=== PATIENT | male | born 1935 | race Caucasian/White ===

== ENCOUNTER → 2016-07-09 | Outpatient (CLI) | payer MEDICARE, OTHER ==
[~2016-07-09] MED LIST: AML5T PO; ASPI-231 PO; BENA20TA4 PO; FENO160T8 PO; GLUC750T29 PO; LEVO25TA49 PO; MULT-775 OR; POT20T PO; READI-CAT 2 (BARIUM SULF)(VANILLA SMOOTHIE) 450ML ONE; TAMS0.4C36 PO
== END | disposition home or self-care (01) ==
LOC: Rad HDHVI 11:01
PROVIDERS: ATTEND Internal Medicine Cardiovascular Disease
DX: K57.30 Diverticulosis of large intestine without perforation or abscess without bleeding (principal); N32.3 Diverticulum of bladder; Z90.49 Acquired absence of other specified parts of digestive tract; M12.88 Other specific arthropathies, not elsewhere classified, other specified site; M43.16 Spondylolisthesis, lumbar region; M47.897 Other spondylosis, lumbosacral region
CPT/HCPCS: 74176

== ENCOUNTER → 2017-04-29 | Outpatient (CLI) | payer MEDICARE, OTHER ==
[~2017-04-29] MED LIST changes: +BENA20TA14 PO; -BENA20TA4 PO; -READI-CAT 2 (BARIUM SULF)(VANILLA SMOOTHIE) 450ML ONE
[2017-04-29 10:00] VITALS: BP 127/79
[2017-04-29 10:32] VITALS: BP 115/71
[2017-04-29 12:58] LABS: Basophils # (auto) 0.1 uL; Basophils % (auto) 1.2 % (0.0-2.0); Eosinophils # (auto) 0.2 uL; Hematocrit 44.9 % (41.0-53.0); Hemoglobin 15.2 g/dL (13.5-17.5); Lymphocytes # (auto) 1.2 uL; Lymphocytes % (auto) 23.6 % (10.0-50.0); Mean Corpuscular Hemoglobin 29.6 pg (28.0-32.0); Mean Corpuscular Hgb Conc. 33.8 g/dL (32.0-36.0); Mean Corpuscular Volume 87.5 fL (80.0-100.0); Mean Platelet Volume 9.5 fL (6.9-10.8); Monocytes # (auto) 0.5 uL; Monocytes % (auto) 10.3 % (0.0-12.0); Neutrophils # (auto) 3.2 uL; Neutrophils % (auto) 60.9 % (37.0-80.0); Nucleated Red Blood Cells % 0.2 %; Platelet Count (auto) 211 10^3/uL (140-450); Red Cell Distribution Width 14.1 % (11.8-14.3); White Blood Cell 5.2 10^3/uL (4.4-10.8)
[2017-04-29 13:08] LABS: BUN/Creatinine Ratio 16.1; Calcium 9.9 mg/dL (8.5-10.1); Potassium 3.9 mmol/L (3.5-5.1)
== END | disposition home or self-care (01) ==
LOC: Rad HDHVI 09:48
PROVIDERS: ATTEND Internal Medicine Cardiovascular Disease
DX: Z01.818 Encounter for other preprocedural examination (principal); I70.0 Atherosclerosis of aorta; I10 Essential (primary) hypertension; D64.9 Anemia, unspecified; R79.1 Abnormal coagulation profile; E78.00 Pure hypercholesterolemia, unspecified; M77.8 Other enthesopathies, not elsewhere classified
CPT/HCPCS: 36415; 71020; 80048; 85025; 93005; G0463

== ENCOUNTER → 2017-05-16 | Outpatient (CLI) | payer MEDICARE, OTHER ==
[~2017-05-16] VITALS: Ht 177.8 cm; Wt 95.3 kg
[~2017-05-16] MED LIST changes: +ADENOSINE 80 MG in GIVE UN-DILUTED 0 ML IV ONE; +ADENOSINE 90 MG/30 ML INJ IV ONE
== END | disposition home or self-care (01) ==
LOC: Rad HDHVI 13:09
PROVIDERS: ATTEND Internal Medicine Cardiovascular Disease
DX: I51.7 Cardiomegaly (principal); I36.1 Nonrheumatic tricuspid (valve) insufficiency; E03.9 Hypothyroidism, unspecified; E78.2 Mixed hyperlipidemia
CPT/HCPCS: 36415; 78452; 84443; 93005; 93306; 96374; 96375; A9500; J0153

== ENCOUNTER → 2017-07-29 | Outpatient (CLI) | payer MEDICARE, OTHER ==
[~2017-07-29] MED LIST changes: -ADENOSINE 80 MG in GIVE UN-DILUTED 0 ML IV ONE; -ADENOSINE 90 MG/30 ML INJ IV ONE; +FENO5TAB PO; +HYDR25TA4 PO; +LEVO50TA7 PO
[2017-07-29 12:10] LABS: Basophils # (auto) 0.1 uL; Basophils % (auto) 1.3 % (0.0-2.0); Eosinophils # (auto) 0.3 uL; Eosinophils % (auto) 5.5 % (0.0-7.0); Hematocrit 46.6 % (41.0-53.0); Hemoglobin 15.4 g/dL (13.5-17.5); Lymphocytes # (auto) 1.1 uL; Lymphocytes % (auto) 17.7 % (10.0-50.0); Mean Corpuscular Hemoglobin 28.9 pg (28.0-32.0); Mean Corpuscular Hgb Conc. 33.2 g/dL (32.0-36.0); Mean Corpuscular Volume 87.3 fL (80.0-100.0); Monocytes # (auto) 0.6 uL; Monocytes % (auto) 10.3 % (0.0-12.0); Neutrophils # (auto) 4.1 uL; Neutrophils % (auto) 65.2 % (37.0-80.0); Nucleated Red Blood Cells % 0.3 %; Platelet Count (auto) 234 10^3/uL (140-450); Red Blood Cells 5.34 10^6/uL (4.5-5.90); Red Cell Distribution Width 14.4 % (11.8-14.3); White Blood Cell 6.3 10^3/uL (4.4-10.8)
[2017-07-29 12:12] LABS: Urine Blood Negative /uL (Negative); Urine Specific Gravity 1.019 (1.001-1.035)
[2017-07-29 12:26] LABS: Free T4 (Free Thyroxine) 1.44 ng/dL (0.89-1.76); Prostate Specific Antigen 0.25 ng/mL (0.0-4.0)
[2017-07-29 12:53] LABS: Albumin 4.1 g/dL (3.4-5.0); BUN/Creatinine Ratio 26.5; Bilirubin, Direct 0.2 mg/dL (0-0.2); Bilirubin, Total 0.7 mg/dL (0.2-1.0); Calcium 10.1 mg/dL (8.5-10.1); Total Protein 7.3 g/dL (6.4-8.2)
== END | disposition home or self-care (01) ==
LOC: LAB 08:32
PROVIDERS: ATTEND Internal Medicine Cardiovascular Disease
DX: E78.00 Pure hypercholesterolemia, unspecified (principal); D64.9 Anemia, unspecified; E11.9 Type 2 diabetes mellitus without complications; E03.9 Hypothyroidism, unspecified; E55.9 Vitamin D deficiency, unspecified; K74.1 Hepatic sclerosis; D51.9 Vitamin B12 deficiency anemia, unspecified; I10 Essential (primary) hypertension; N39.0 Urinary tract infection, site not specified; R97.20 Elevated prostate specific antigen [PSA]; R53.81 Other malaise
CPT/HCPCS: 36415; 80048; 80061; 80076; 81003; 82306; 82607; 83036; 84153; 84402; 84403; 84439; 85025

== ENCOUNTER 2017-08-14 11:41 | Inpatient (IN) | payer MEDICARE, OTHER ==
[~2017-08-14] VITALS: Ht 185.4 cm; Wt 90.5 kg
[~2017-08-14 11:41] MED LIST changes: -FENO5TAB PO; -HYDR25TA4 PO; -LEVO50TA7 PO; +VANCOMYCIN 1GM/250ML 250 ML IV ONE
[2017-08-14] MEDS ORDERED: VANCOMYCIN 1GM/250ML 250 ML IV ONE (11:45)
[2017-08-14] MEDS ORDERED: PIPERACILLIN-TAZO 4.5GM 50 ML IV ONE ×2 (12:00→12:48)
[2017-08-14 14:16] VITALS: BP 114/69
[2017-08-14 16:55] VITALS: BP 124/85
[2017-08-14 17:14] VITALS: BP 124/85
[2017-08-14 17:17] LABS: Basophils # (auto) 0.1 uL; Basophils % (auto) 1.5 % (0.0-2.0); Eosinophils # (auto) 0.2 uL; Eosinophils % (auto) 4.5 % (0.0-7.0); Hematocrit 42.1 % (41.0-53.0); Hemoglobin 14.1 g/dL (13.5-17.5); Lymphocytes # (auto) 0.7 uL; Lymphocytes % (auto) 16.5 % (10.0-50.0); Mean Corpuscular Hemoglobin 29.4 pg (28.0-32.0); Mean Corpuscular Hgb Conc. 33.4 g/dL (32.0-36.0); Mean Corpuscular Volume 87.8 fL (80.0-100.0); Monocytes # (auto) 0.4 uL; Monocytes % (auto) 10.1 % (0.0-12.0); Neutrophils % (auto) 67.4 % (37.0-80.0); Nucleated Red Blood Cells % 0.1 %; Platelet Count (auto) 222 10^3/uL (140-450); Red Cell Distribution Width 14.3 % (11.8-14.3); White Blood Cell 4.5 10^3/uL (4.4-10.8)
[2017-08-14 17:23] LABS: BUN/Creatinine Ratio 19.1; Calcium 9.4 mg/dL (8.5-10.1); Potassium 3.6 mmol/L (3.5-5.1)
[2017-08-14 20:11] LABS: Albumin 3.2 g/dL (3.4-5.0); Bilirubin, Direct 0.2 mg/dL (0-0.2); Bilirubin, Total 0.5 mg/dL (0.2-1.0); Total Protein 7.2 g/dL (6.4-8.2)
[2017-08-14] MEDS: PIPERACILLIN-TAZOB 3.375GM 50 ML IV SCH (21:47)
[2017-08-14 22:00] VITALS: BP 114/64
[2017-08-15] MEDS: PIPERACILLIN-TAZOB 3.375GM 50 ML IV SCH ×4 (02:59→21:00)
[2017-08-15 05:00] VITALS: BP 120/70
[2017-08-15] MEDS: VANCOMYCIN 1,500 MG in D5W 5% 250 ML IV SCH (05:48)
[2017-08-15 06:17] LABS: Basophils # (auto) 0.1 uL; Basophils % (auto) 1.3 % (0.0-2.0); Eosinophils # (auto) 0.3 uL; Eosinophils % (auto) 5.6 % (0.0-7.0); Hematocrit 40.9 % (41.0-53.0); Hemoglobin 13.8 g/dL (13.5-17.5); Lymphocytes % (auto) 20.3 % (10.0-50.0); Mean Corpuscular Hemoglobin 29.3 pg (28.0-32.0); Mean Corpuscular Hgb Conc. 33.7 g/dL (32.0-36.0); Monocytes # (auto) 0.6 uL; Monocytes % (auto) 12.1 % (0.0-12.0); Neutrophils # (auto) 3.1 uL; Neutrophils % (auto) 60.7 % (37.0-80.0); Nucleated Red Blood Cells % 0.1 %; Platelet Count (auto) 225 10^3/uL (140-450); Red Blood Cells 4.71 10^6/uL (4.5-5.90); Red Cell Distribution Width 14.4 % (11.8-14.3); White Blood Cell 5.1 10^3/uL (4.4-10.8)
[2017-08-15 06:33] LABS: BUN/Creatinine Ratio 22.8; Calcium 9.7 mg/dL (8.5-10.1); Potassium 3.9 mmol/L (3.5-5.1)
[2017-08-15] MEDS: LEVOTHYROXINE SODIUM 50 MCG TAB PO SCH (06:37)
[2017-08-15 09:00] VITALS: BP 121/75
[2017-08-15] MEDS: amLODIPine BESYLATE 5 MG TAB PO SCH (09:10)
[2017-08-15] MEDS: BENAZEPRIL HCL 10 MG TAB PO SCH (09:12)
[2017-08-15] MEDS: POTASSIUM CHL 20 Meq TABLET PO SCH (09:12)
[2017-08-15] MEDS: HCTZ 25 MG TAB PO SCH (09:13)
[2017-08-15] MEDS: ASPirin 81 mg TAB PO SCH (09:14)
[2017-08-15] MEDS: FENOFIBRATE 160MG TABLET PO SCH (10:00)
[2017-08-15 13:00] VITALS: BP 113/65
[2017-08-15] MEDS ORDERED: VANCOMYCIN PER PHARMACY 0 MG IV SCH (16:00)
[2017-08-15 17:16] VITALS: BP 108/63
[2017-08-15] MEDS: TAMSULOSIN HYDROCHLORIDE 0.4 MG CAP PO SCH (18:09)
[2017-08-15 22:00] VITALS: BP 113/68
[2017-08-16] MEDS: PIPERACILLIN-TAZOB 3.375GM 50 ML IV SCH ×4 (03:00→21:10)
[2017-08-16 05:00] VITALS: BP 120/71
[2017-08-16] MEDS: VANCOMYCIN 1,500 MG in D5W 5% 250 ML IV SCH (05:46)
[2017-08-16] MEDS: LEVOTHYROXINE SODIUM 50 MCG TAB PO SCH (05:51)
[2017-08-16] MEDS ORDERED: ceFAZolin 1GM VL ONE (08:00)
[2017-08-16] MEDS ORDERED: NEOMYCIN-BACITRACIN-POLYM 15GM TOP OINT TOP ONE (08:00)
[2017-08-16 09:00] VITALS: BP 126/73
[2017-08-16 09:10] LABS: INR 1.02 (0.9-1.15); Partial Thromboplastin Time 34.9 sec (22.64-33.71); Prothrombin Time 11.1 sec (9.37-12.3)
[2017-08-16] MEDS: FENOFIBRATE 160MG TABLET PO SCH (10:00)
[2017-08-16] MEDS: POTASSIUM CHL 20 Meq TABLET PO SCH (10:52)
[2017-08-16] MEDS: ASPirin 81 mg TAB PO SCH (10:52)
[2017-08-16] MEDS: amLODIPine BESYLATE 5 MG TAB PO SCH (10:52)
[2017-08-16] MEDS: BENAZEPRIL HCL 10 MG TAB PO SCH (10:53)
[2017-08-16] MEDS: HCTZ 25 MG TAB PO SCH (10:53)
[2017-08-16 13:00] VITALS: BP 16/78
[2017-08-16] MEDS ORDERED: LEVO50TA7 PO (15:53)
[2017-08-16] MEDS ORDERED: FENO5TAB PO (15:53)
[2017-08-16] MEDS ORDERED: HYDR25TA4 PO (15:53)
[2017-08-16 17:11] VITALS: BP 110/64
[2017-08-16] MEDS: TAMSULOSIN HYDROCHLORIDE 0.4 MG CAP PO SCH (17:34)
[2017-08-16 22:00] VITALS: BP 107/70
[2017-08-17] MEDS: PIPERACILLIN-TAZOB 3.375GM 50 ML IV SCH ×2 (02:40→09:45)
[2017-08-17 05:00] VITALS: BP 113/67
[2017-08-17] MEDS: VANCOMYCIN 1,500 MG in D5W 5% 250 ML IV SCH (06:04)
[2017-08-17] MEDS: LEVOTHYROXINE SODIUM 50 MCG TAB PO SCH (06:44)
[2017-08-17 08:00] VITALS: BP 125/75
[2017-08-17] MEDS: POTASSIUM CHL 20 Meq TABLET PO SCH (09:45)
[2017-08-17] MEDS: amLODIPine BESYLATE 5 MG TAB PO SCH (09:45)
[2017-08-17] MEDS: ASPirin 81 mg TAB PO SCH (09:46)
[2017-08-17] MEDS: FENOFIBRATE 160MG TABLET PO SCH (09:50)
[2017-08-17] MEDS: BENAZEPRIL HCL 10 MG TAB PO SCH (09:50)
[2017-08-17] MEDS: HCTZ 25 MG TAB PO SCH (09:50)
[2017-08-17 12:00] VITALS: BP 115/75
[2017-08-17 13:35] VITALS: BP 115/75
== END 2017-08-17 14:25 | disposition home or self-care (01) | DRG 580 ==
LOC: CHF HDHVI 11:41 → EDSTATUS 13:36 → WEST WING 14:44
PROVIDERS: ADMIT Internal Medicine Cardiovascular Disease; ATTEND Internal Medicine Cardiovascular Disease
PROC: 0J9G0ZZ Drainage of Right Lower Arm Subcutaneous Tissue and Fascia, Open Approach (ICD-10-PCS; principal; 2017-08-17)
DX: L02.414 Cutaneous abscess of left upper limb (principal); E44.1 Mild protein-calorie malnutrition; B96.89 Other specified bacterial agents as the cause of diseases classified elsewhere; L03.113 Cellulitis of right upper limb
CPT/HCPCS: 36415; 71045; 80048; 80061; 80076; 85025; 85610; 85730; 87077; 87186; 87205; 93005; 96365; 96367; G0463; J0690; J1642; J2543; J7060

== ENCOUNTER → 2018-05-01 | Outpatient (CLI) | payer MEDICARE, OTHER ==
[~2018-05-01] VITALS: Ht 182.9 cm; Wt 90.7 kg
[~2018-05-01] MED LIST changes: +ADENOSINE 76 MG in GIVE UN-DILUTED 0 ML IV ONE; +ADENOSINE 90 MG/30 ML INJ IV ONE; +HYDR25TA4 PO; -LEVO25TA49 PO; +LEVO50TA7 PO; -VANCOMYCIN 1GM/250ML 250 ML IV ONE
[2018-05-01 12:12] LABS: Urine Blood Negative /uL (Negative); Urine Specific Gravity 1.017 (1.001-1.035)
[2018-05-01 12:16] LABS: Basophils # (auto) 0 uL; Basophils % (auto) 0.7 % (0.0-2.0); Eosinophils # (auto) 0.2 uL; Eosinophils % (auto) 3.4 % (0.0-7.0); Hematocrit 45.6 % (41.0-53.0); Hemoglobin 15.4 g/dL (13.5-17.5); Lymphocytes # (auto) 1.4 uL; Lymphocytes % (auto) 25.5 % (10.0-50.0); Mean Corpuscular Hemoglobin 29.6 pg (28.0-32.0); Mean Corpuscular Hgb Conc. 33.7 g/dL (32.0-36.0); Monocytes # (auto) 0.6 uL; Monocytes % (auto) 10.1 % (0.0-12.0); Neutrophils # (auto) 3.4 uL; Neutrophils % (auto) 60.3 % (37.0-80.0); Nucleated Red Blood Cells % 0.5 %; Platelet Count (auto) 228 10^3/uL (140-450); Red Blood Cells 5.18 10^6/uL (4.5-5.90); Red Cell Distribution Width 13.9 % (11.8-14.3); White Blood Cell 5.6 10^3/uL (4.4-10.8)
[2018-05-01 12:26] LABS: Albumin 4.1 g/dL (3.4-5.0); Calcium 9.8 mg/dL (8.5-10.1)
[2018-05-01 12:32] LABS: BUN/Creatinine Ratio 24.3; Bilirubin, Total 0.7 mg/dL (0.2-1.0); Total Protein 7.6 g/dL (6.4-8.2)
[2018-05-01 12:33] LABS: Free T4 (Free Thyroxine) 1.26 ng/dL (0.89-1.76); Prostate Specific Antigen 0.37 ng/mL (0.0-4.0)
== END | disposition home or self-care (01) ==
LOC: Rad HDHVI 07:59
PROVIDERS: ATTEND Internal Medicine Cardiovascular Disease
DX: I11.0 Hypertensive heart disease with heart failure (principal); I50.23 Acute on chronic systolic (congestive) heart failure; R07.89 Other chest pain; E78.5 Hyperlipidemia, unspecified; E03.9 Hypothyroidism, unspecified; E55.9 Vitamin D deficiency, unspecified; E11.9 Type 2 diabetes mellitus without complications; C61 Malignant neoplasm of prostate; D51.9 Vitamin B12 deficiency anemia, unspecified; D64.9 Anemia, unspecified; N39.0 Urinary tract infection, site not specified
CPT/HCPCS: 36415; 78452; 80053; 80061; 81003; 82306; 82607; 83036; 84153; 84403; 84439; 84443; 85025; 93005; 96374; 96375; A9500; J0153

== ENCOUNTER → 2018-12-17 | Outpatient (CLI) | payer MEDICARE, OTHER ==
[~2018-12-17] MED LIST changes: -ADENOSINE 76 MG in GIVE UN-DILUTED 0 ML IV ONE; -ADENOSINE 90 MG/30 ML INJ IV ONE
== END | disposition home or self-care (01) ==
LOC: Rad HDHVI 10:59
PROVIDERS: ATTEND Internal Medicine Cardiovascular Disease
DX: M48.02 Spinal stenosis, cervical region (principal); J84.10 Pulmonary fibrosis, unspecified; M12.88 Other specific arthropathies, not elsewhere classified, other specified site; M25.78 Osteophyte, vertebrae
CPT/HCPCS: 72125

== ENCOUNTER 2020-03-03 12:31 | Inpatient (IN) | payer MEDICARE, OTHER ==
[~2020-03-03] VITALS: Ht 177.8 cm; Wt 90.8 kg
[2020-03-03 17:00] VITALS: BP 146/86
[2020-03-03] MEDS ORDERED: MORPHINE SULF INJ 2 MG/ML SYRINGE 1ML IV PRN (17:00)
[2020-03-03] MEDS ORDERED: TPN PER PHARMACY 0 ML IV SCH (17:00)
[2020-03-03] MEDS ORDERED: NITROGLYCERIN 0.4 MG SL TAB SL PRN (17:00)
[2020-03-03] MEDS ORDERED: levoFLOXacin 500MG 100 ML IV ONE (17:00)
[2020-03-03] MEDS ORDERED: PANTOPRAZOLE 40 MG/10 ML VIAL INJ IV ONE (17:30)
[2020-03-03] MEDS ORDERED: METOCLOPRAMIDE HCL 5MG/ml INJ 2ml VIAL IV ONE (17:30)
[2020-03-03] MEDS ORDERED: levoFLOXacin 500MG 100 ML IV SCH (18:00)
[2020-03-03] MEDS: metroNIDAZOLE 500MG/100ML 100 ML IV SCH ×2 (18:14→23:33)
[2020-03-03] MEDS: SODIUM CHLORIDE 0.9% 1,000 ML IV SCH (18:15)
[2020-03-03 18:30] LABS: Basophils # (auto) 0.1 10 ^3/uL (0-0.2); Basophils % (auto) 0.7 % (0.0-2.0); Eosinophils # (auto) 0.1 10 ^3/uL (0-0.8); Eosinophils % (auto) 1.5 % (0.0-7.0); Hemoglobin 15.5 g/dL (13.5-17.5); Lymphocytes % (auto) 13.4 % (10.0-50.0); Mean Corpuscular Hemoglobin 28.9 pg (28.0-32.0); Mean Corpuscular Hgb Conc. 32.9 g/dL (32.0-36.0); Mean Corpuscular Volume 87.9 fL (80.0-100.0); Monocytes # (auto) 0.9 10 ^3/uL (0-1.3); Monocytes % (auto) 11.4 % (0.0-12.0); Neutrophils # (auto) 5.6 10 ^3/uL (1.6-8.6); Platelet Count (auto) 199 10^3/uL (140-450); Red Blood Cells 5.35 10^6/uL (4.5-5.90); Red Cell Distribution Width 14.5 % (11.8-14.3); White Blood Cell 7.7 10^3/uL (4.4-10.8)
[2020-03-03 18:41] LABS: INR 1.11 (0.9-1.15)
[2020-03-03 19:09] LABS: Potassium 3.8 mmol/L (3.5-5.1)
[2020-03-03 19:15] LABS: Albumin 3.5 g/dL (3.4-5.0); Bilirubin, Direct 0.5 mg/dL (0-0.2); Bilirubin, Total 1.2 mg/dL (0.2-1.0); Phosphorus 2.5 mg/dL (2.5-4.90); Total Protein 6.4 g/dL (6.4-8.2)
[2020-03-03 19:16] LABS: BUN/Creatinine Ratio 22.3; Calcium 9.7 mg/dL (8.5-10.1)
[2020-03-03] MEDS ORDERED: AMINO ACID INFUSION IN D5W 2,000 ML IV NR (20:00)
[2020-03-03 21:00] VITALS: BP 137/69
[2020-03-03] MEDS: PIPERACILLIN-TAZO 4.5GM 100 ML IV SCH (21:31)
[2020-03-03] MEDS: METOCLOPRAMIDE HCL 5MG/ml INJ 2ml VIAL IV SCH (21:32)
[2020-03-03] MEDS: ACCU-CHEK COMFORT CURVE STRIP VI SCH (23:33)
[2020-03-03] MEDS: InsuLIN REG 1unit/0.01ml Soln (100units/ml) SC SCH (23:38)
[2020-03-03] MEDS: HYDROmorphone HCL 2 MG/ML VL IV PRN (23:43)
[2020-03-04] MEDS ORDERED: DEXTROSE (50%) 50ML SYRG IV SCH
[2020-03-04] MEDS: SODIUM CHLORIDE 0.9% 1,000 ML IV SCH ×4 (00:10→20:00)
[2020-03-04 05:00] VITALS: BP 137/70
[2020-03-04] MEDS: metroNIDAZOLE 500MG/100ML 100 ML IV SCH ×3 (05:16→18:42)
[2020-03-04] MEDS: InsuLIN REG 1unit/0.01ml Soln (100units/ml) SC SCH ×3 (06:00→18:00)
[2020-03-04] MEDS: METOCLOPRAMIDE HCL 5MG/ml INJ 2ml VIAL IV SCH ×3 (06:04→22:14)
[2020-03-04] MEDS: PIPERACILLIN-TAZO 4.5GM 100 ML IV SCH ×3 (06:33→22:14)
[2020-03-04] MEDS: ACCU-CHEK COMFORT CURVE STRIP VI SCH ×3 (06:42→18:34)
[2020-03-04 06:55] LABS: Basophils # (auto) 0.1 10 ^3/uL (0-0.2); Basophils % (auto) 0.6 % (0.0-2.0); Eosinophils # (auto) 0.2 10 ^3/uL (0-0.8); Eosinophils % (auto) 2.6 % (0.0-7.0); Hematocrit 45.7 % (41.0-53.0); Hemoglobin 15.5 g/dL (13.5-17.5); Lymphocytes # (auto) 1.1 10 ^3/uL (0.4-5.4); Lymphocytes % (auto) 13.4 % (10.0-50.0); Mean Corpuscular Hemoglobin 29.6 pg (28.0-32.0); Mean Corpuscular Volume 87.1 fL (80.0-100.0); Monocytes # (auto) 0.9 10 ^3/uL (0-1.3); Monocytes % (auto) 11.6 % (0.0-12.0); Neutrophils # (auto) 5.8 10 ^3/uL (1.6-8.6); Neutrophils % (auto) 71.8 % (37.0-80.0); Platelet Count (auto) 186 10^3/uL (140-450); Red Blood Cells 5.24 10^6/uL (4.5-5.90); Red Cell Distribution Width 14.4 % (11.8-14.3); White Blood Cell 8.2 10^3/uL (4.4-10.8)
[2020-03-04 07:04] LABS: Albumin 3.1 g/dL (3.4-5.0); Calcium 8.9 mg/dL (8.5-10.1); Magnesium 2.1 mg/dL (1.6-2.6); Potassium 3.2 mmol/L (3.5-5.1)
[2020-03-04 07:09] LABS: BUN/Creatinine Ratio 27.2; Bilirubin, Total 1.2 mg/dL (0.2-1.0); Phosphorus 1.7 mg/dL (2.5-4.90); Pre Albumin 15.7 mg/dL (20.0-40.0); Total Protein 6.4 g/dL (6.4-8.2)
[2020-03-04 09:00] VITALS: BP 130/78
[2020-03-04] MEDS: PANTOPRAZOLE 40 MG/10 ML VIAL INJ IV SCH (10:04)
[2020-03-04] MEDS ORDERED: POTASSIUM PHOSP 22MEQ(15MMOLE) in NS 100 ML IV ONE (11:00)
[2020-03-04] MEDS ORDERED: IOHEXOL 300 MG/ML 100ML BOTTLE IJ ONE ×2 (11:23→12:06)
[2020-03-04 13:00] VITALS: BP 137/80
[2020-03-04] MEDS ORDERED: LIDOCAINE 1% (LOCAL ANESTH.) PF 5ml SDV ID ONE (14:30)
[2020-03-04] MEDS ORDERED: BISACODYL 10 MG RECT SUPP PR ONE (16:30)
[2020-03-04 16:44] VITALS: BP 146/79
[2020-03-04] MEDS ORDERED: SODIUM CHLORIDE 0.9% 350 ML IV ONE (19:30)
[2020-03-04] MEDS ORDERED: PPN PER PHARMACY IV NR ×9 (20:00)
[2020-03-04 21:00] VITALS: BP 132/75
[2020-03-04] MEDS: SODIUM CHLOR 0.9% PF (SALINE LOCK) 10ML VIAL/SYR IV SCH (22:15)
[2020-03-05] MEDS: metroNIDAZOLE 500MG/100ML 100 ML IV SCH ×5 (00:21→23:40)
[2020-03-05] MEDS: ACCU-CHEK COMFORT CURVE STRIP VI SCH ×5 (00:21→23:47)
[2020-03-05 05:00] VITALS: BP 134/82
[2020-03-05 05:58] LABS: Basophils # (auto) 0.1 10 ^3/uL (0-0.2); Basophils % (auto) 0.6 % (0.0-2.0); Eosinophils # (auto) 0.3 10 ^3/uL (0-0.8); Eosinophils % (auto) 3.5 % (0.0-7.0); Hematocrit 42.8 % (41.0-53.0); Hemoglobin 14.8 g/dL (13.5-17.5); Lymphocytes % (auto) 11.8 % (10.0-50.0); Mean Corpuscular Hemoglobin 29.9 pg (28.0-32.0); Mean Corpuscular Hgb Conc. 34.7 g/dL (32.0-36.0); Mean Corpuscular Volume 86.3 fL (80.0-100.0); Monocytes # (auto) 0.8 10 ^3/uL (0-1.3); Monocytes % (auto) 9.4 % (0.0-12.0); Neutrophils # (auto) 6.4 10 ^3/uL (1.6-8.6); Neutrophils % (auto) 74.7 % (37.0-80.0); Nucleated Red Blood Cells % 0.1 %; Platelet Count (auto) 170 10^3/uL (140-450); Red Blood Cells 4.96 10^6/uL (4.5-5.90); Red Cell Distribution Width 14.2 % (11.8-14.3); White Blood Cell 8.6 10^3/uL (4.4-10.8)
[2020-03-05] MEDS: InsuLIN REG 1unit/0.01ml Soln (100units/ml) SC SCH ×5 (06:00→23:42)
[2020-03-05] MEDS: PIPERACILLIN-TAZO 4.5GM 100 ML IV SCH ×3 (06:02→22:02)
[2020-03-05] MEDS: SODIUM CHLORIDE 0.9% 1,000 ML IV SCH ×3 (06:02→20:00)
[2020-03-05] MEDS: METOCLOPRAMIDE HCL 5MG/ml INJ 2ml VIAL IV SCH ×3 (06:02→22:01)
[2020-03-05 06:22] LABS: Albumin 2.9 g/dL (3.4-5.0); Calcium 8.8 mg/dL (8.5-10.1); Magnesium 1.9 mg/dL (1.6-2.6); Potassium 3.2 mmol/L (3.5-5.1)
[2020-03-05 06:27] LABS: Bilirubin, Total 0.8 mg/dL (0.2-1.0); Phosphorus 1.6 mg/dL (2.5-4.90)
[2020-03-05] MEDS ORDERED: SODIUM CHLORIDE 0.9% 115 ML IV ONE (07:15)
[2020-03-05 09:00] VITALS: BP 126/74
[2020-03-05] MEDS ORDERED: POTASSIUM CHL 20MEQ/100ML 100 ML IV SCH (09:30)
[2020-03-05] MEDS: SODIUM CHLOR 0.9% PF (SALINE LOCK) 10ML VIAL/SYR IV SCH ×2 (09:40→22:01)
[2020-03-05] MEDS: PANTOPRAZOLE 40 MG/10 ML VIAL INJ IV SCH (09:40)
[2020-03-05] MEDS ORDERED: POTASSIUM PHOSPHATE 44 MEQ in D5W 5% 250 ML IV ONE (09:45)
[2020-03-05] MEDS ORDERED: GASTROGRAFIN 120 ML SOL ONE (10:48)
[2020-03-05 14:00] VITALS: BP 149/92
[2020-03-05 16:37] VITALS: BP 135/82
[2020-03-05] MEDS ORDERED: SODIUM CHLORIDE 0.9% 125 ML IV SCH (18:15)
[2020-03-05] MEDS ORDERED: TPN PER PHARMACY IV NR ×8 (20:00)
[2020-03-05 22:00] VITALS: BP 119/88
[2020-03-06 05:30] VITALS: BP 136/85
[2020-03-06] MEDS: PIPERACILLIN-TAZO 4.5GM 100 ML IV SCH ×3 (05:36→23:16)
[2020-03-06] MEDS: metroNIDAZOLE 500MG/100ML 100 ML IV SCH ×4 (05:36→23:30)
[2020-03-06] MEDS: METOCLOPRAMIDE HCL 5MG/ml INJ 2ml VIAL IV SCH ×3 (05:36→23:15)
[2020-03-06] MEDS: InsuLIN REG 1unit/0.01ml Soln (100units/ml) SC SCH ×4 (06:00→23:37)
[2020-03-06] MEDS: ACCU-CHEK COMFORT CURVE STRIP VI SCH ×4 (06:01→23:31)
[2020-03-06] MEDS ORDERED: SODIUM CHLORIDE 0.9% 500 ML IV ONE (06:15)
[2020-03-06 06:21] LABS: Basophils # (auto) 0 10 ^3/uL (0-0.2); Basophils % (auto) 0.5 % (0.0-2.0); Eosinophils # (auto) 0.3 10 ^3/uL (0-0.8); Eosinophils % (auto) 3.5 % (0.0-7.0); Hematocrit 47.8 % (41.0-53.0); Hemoglobin 15.8 g/dL (13.5-17.5); Lymphocytes # (auto) 1.1 10 ^3/uL (0.4-5.4); Lymphocytes % (auto) 12.5 % (10.0-50.0); Mean Corpuscular Hemoglobin 29.1 pg (28.0-32.0); Mean Corpuscular Volume 88.2 fL (80.0-100.0); Monocytes # (auto) 0.9 10 ^3/uL (0-1.3); Monocytes % (auto) 9.8 % (0.0-12.0); Neutrophils # (auto) 6.5 10 ^3/uL (1.6-8.6); Neutrophils % (auto) 73.7 % (37.0-80.0); Platelet Count (auto) 198 10^3/uL (140-450); Red Blood Cells 5.42 10^6/uL (4.5-5.90); Red Cell Distribution Width 14.3 % (11.8-14.3); White Blood Cell 8.8 10^3/uL (4.4-10.8)
[2020-03-06 06:43] LABS: Potassium 3.1 mmol/L (3.5-5.1)
[2020-03-06 06:50] LABS: Albumin 3.3 g/dL (3.4-5.0); BUN/Creatinine Ratio 22.3; Bilirubin, Total 0.6 mg/dL (0.2-1.0); Calcium 9.2 mg/dL (8.5-10.1); Magnesium 2.6 mg/dL (1.6-2.6); Phosphorus 2.1 mg/dL (2.5-4.90); Total Protein 6.9 g/dL (6.4-8.2)
[2020-03-06 08:46] VITALS: BP 150/81
[2020-03-06] MEDS: PANTOPRAZOLE 40 MG/10 ML VIAL INJ IV SCH (09:19)
[2020-03-06] MEDS: SODIUM CHLOR 0.9% PF (SALINE LOCK) 10ML VIAL/SYR IV SCH ×2 (09:19→23:16)
[2020-03-06] MEDS: SODIUM CHLORIDE 0.9% 1,000 ML IV SCH ×3 (09:20→20:53)
[2020-03-06] MEDS ORDERED: POTASSIUM CHL 20MEQ/100ML 100 ML IV ONE (11:00)
[2020-03-06 13:00] VITALS: BP 132/82
[2020-03-06] MEDS ORDERED: POTASSIUM PHOSPHATE 44 MEQ in D5W 5% 250 ML IV ONE (13:00)
[2020-03-06 17:00] VITALS: BP 139/82
[2020-03-06] MEDS ORDERED: SODIUM CHLORIDE 0.9% 600 ML IV ONE (18:15)
[2020-03-06] MEDS ORDERED: TPN PER PHARMACY IV NR ×8 (20:00)
[2020-03-06 22:00] VITALS: BP 143/84
[2020-03-07] MEDS ORDERED: TEMAZEPAM 15 MG CAP PO PRN (00:15)
[2020-03-07 05:00] VITALS: BP 141/81
[2020-03-07 05:50] LABS: Basophils # (auto) 0.1 10 ^3/uL (0-0.2); Basophils % (auto) 0.9 % (0.0-2.0); Eosinophils # (auto) 0.4 10 ^3/uL (0-0.8); Eosinophils % (auto) 4.3 % (0.0-7.0); Hemoglobin 15.4 g/dL (13.5-17.5); Lymphocytes # (auto) 1.2 10 ^3/uL (0.4-5.4); Lymphocytes % (auto) 14.7 % (10.0-50.0); Mean Corpuscular Hemoglobin 28.7 pg (28.0-32.0); Mean Corpuscular Hgb Conc. 32.8 g/dL (32.0-36.0); Mean Corpuscular Volume 87.6 fL (80.0-100.0); Monocytes # (auto) 0.9 10 ^3/uL (0-1.3); Monocytes % (auto) 10.7 % (0.0-12.0); Neutrophils # (auto) 5.8 10 ^3/uL (1.6-8.6); Neutrophils % (auto) 69.4 % (37.0-80.0); Platelet Count (auto) 220 10^3/uL (140-450); Red Blood Cells 5.37 10^6/uL (4.5-5.90); Red Cell Distribution Width 14.2 % (11.8-14.3); White Blood Cell 8.3 10^3/uL (4.4-10.8)
[2020-03-07] MEDS: ACCU-CHEK COMFORT CURVE STRIP VI SCH ×3 (06:00→17:20)
[2020-03-07] MEDS: InsuLIN REG 1unit/0.01ml Soln (100units/ml) SC SCH ×3 (06:00→17:21)
[2020-03-07 06:07] LABS: Albumin 3.1 g/dL (3.4-5.0); Magnesium 2.5 mg/dL (1.6-2.6); Potassium 3.3 mmol/L (3.5-5.1)
[2020-03-07 06:10] LABS: Bilirubin, Total 0.6 mg/dL (0.2-1.0); Phosphorus 2.5 mg/dL (2.5-4.90); Total Protein 6.9 g/dL (6.4-8.2)
[2020-03-07] MEDS: metroNIDAZOLE 500MG/100ML 100 ML IV SCH ×3 (06:12→17:20)
[2020-03-07] MEDS: METOCLOPRAMIDE HCL 5MG/ml INJ 2ml VIAL IV SCH ×3 (06:12→22:02)
[2020-03-07] MEDS: PIPERACILLIN-TAZO 4.5GM 100 ML IV SCH ×3 (06:13→22:03)
[2020-03-07] MEDS: SODIUM CHLORIDE 0.9% 1,000 ML IV SCH ×3 (08:30→20:00)
[2020-03-07 09:00] VITALS: BP 155/94
[2020-03-07] MEDS: PANTOPRAZOLE 40 MG/10 ML VIAL INJ IV SCH (09:05)
[2020-03-07] MEDS: SODIUM CHLOR 0.9% PF (SALINE LOCK) 10ML VIAL/SYR IV SCH ×2 (09:05→22:02)
[2020-03-07] MEDS ORDERED: POTASSIUM PHOSPHATE 44 MEQ in D5W 5% 250 ML IV ONE (10:00)
[2020-03-07 13:00] VITALS: BP 143/83
[2020-03-07 17:00] VITALS: BP 129/85
[2020-03-07] MEDS ORDERED: TPN PER PHARMACY IV NR ×8 (20:00)
[2020-03-07 22:00] VITALS: BP 143/78
[2020-03-08 05:00] VITALS: BP 154/86
[2020-03-08] MEDS: ACCU-CHEK COMFORT CURVE STRIP VI SCH ×3 (06:00→11:31)
[2020-03-08] MEDS: InsuLIN REG 1unit/0.01ml Soln (100units/ml) SC SCH ×3 (06:00→11:31)
[2020-03-08] MEDS: metroNIDAZOLE 500MG/100ML 100 ML IV SCH ×3 (06:19→11:31)
[2020-03-08] MEDS: PIPERACILLIN-TAZO 4.5GM 100 ML IV SCH ×2 (06:20→13:29)
[2020-03-08] MEDS: METOCLOPRAMIDE HCL 5MG/ml INJ 2ml VIAL IV SCH ×3 (06:20→22:20)
[2020-03-08 06:55] LABS: Basophils # (auto) 0 10 ^3/uL (0-0.2); Basophils % (auto) 0.7 % (0.0-2.0); Eosinophils # (auto) 0.4 10 ^3/uL (0-0.8); Eosinophils % (auto) 5.3 % (0.0-7.0); Hematocrit 44.4 % (41.0-53.0); Lymphocytes # (auto) 0.9 10 ^3/uL (0.4-5.4); Lymphocytes % (auto) 13.5 % (10.0-50.0); Mean Corpuscular Hemoglobin 29.3 pg (28.0-32.0); Mean Corpuscular Hgb Conc. 33.8 g/dL (32.0-36.0); Mean Corpuscular Volume 86.8 fL (80.0-100.0); Monocytes # (auto) 0.8 10 ^3/uL (0-1.3); Neutrophils # (auto) 4.6 10 ^3/uL (1.6-8.6); Neutrophils % (auto) 68.5 % (37.0-80.0); Platelet Count (auto) 207 10^3/uL (140-450); Red Blood Cells 5.12 10^6/uL (4.5-5.90); White Blood Cell 6.7 10^3/uL (4.4-10.8)
[2020-03-08 07:03] LABS: Potassium 3.6 mmol/L (3.5-5.1)
[2020-03-08 07:39] LABS: BUN/Creatinine Ratio 17.8; Bilirubin, Total 0.5 mg/dL (0.2-1.0); Calcium 8.7 mg/dL (8.5-10.1); Magnesium 2.1 mg/dL (1.6-2.6); Phosphorus 2.1 mg/dL (2.5-4.90)
[2020-03-08 09:00] VITALS: BP 139/76
[2020-03-08] MEDS: PANTOPRAZOLE 40 MG/10 ML VIAL INJ IV SCH (09:11)
[2020-03-08] MEDS: SODIUM CHLOR 0.9% PF (SALINE LOCK) 10ML VIAL/SYR IV SCH ×2 (09:11→22:20)
[2020-03-08] MEDS: SODIUM CHLORIDE 0.9% 1,000 ML IV SCH (09:12)
[2020-03-08 13:00] VITALS: BP 127/87
[2020-03-08 17:03] VITALS: BP 143/86
[2020-03-08] MEDS ORDERED: TPN PER PHARMACY IV NR ×8 (20:00)
[2020-03-08 22:00] VITALS: BP 136/92
[2020-03-09 04:49] VITALS: BP 147/88
[2020-03-09] MEDS: METOCLOPRAMIDE HCL 5MG/ml INJ 2ml VIAL IV SCH ×3 (05:44→22:11)
[2020-03-09] MEDS: PANTOPRAZOLE 40 MG/10 ML VIAL INJ IV SCH (08:46)
[2020-03-09] MEDS: SODIUM CHLOR 0.9% PF (SALINE LOCK) 10ML VIAL/SYR IV SCH ×2 (08:46→22:12)
[2020-03-09 09:00] VITALS: BP 127/82
[2020-03-09 13:00] VITALS: BP 112/69
[2020-03-09] MEDS: ONDANSETRON HCL 4 MG/2 ML VIAL IV PRN ×2 (16:10→22:11)
[2020-03-09 16:32] VITALS: BP 121/79
[2020-03-09] MEDS: SODIUM CHLORIDE 0.9% 1,000 ML IV SCH (18:19)
[2020-03-09 21:41] VITALS: BP 122/81
[2020-03-10] MEDS: ONDANSETRON HCL 4 MG/2 ML VIAL IV PRN ×2 (02:54→09:23)
[2020-03-10 05:00] VITALS: BP 141/89
[2020-03-10] MEDS: METOCLOPRAMIDE HCL 5MG/ml INJ 2ml VIAL IV SCH ×3 (05:59→22:15)
[2020-03-10] MEDS: SODIUM CHLORIDE 0.9% 1,000 ML IV SCH ×2 (07:46→22:15)
[2020-03-10 09:00] VITALS: BP 135/85
[2020-03-10] MEDS: PANTOPRAZOLE 40 MG/10 ML VIAL INJ IV SCH (09:19)
[2020-03-10] MEDS: SODIUM CHLOR 0.9% PF (SALINE LOCK) 10ML VIAL/SYR IV SCH ×2 (09:23→22:15)
[2020-03-10 13:00] VITALS: BP 144/69
[2020-03-10] MEDS ORDERED: IOHEXOL 300 MG/ML 100ML BOTTLE IJ ONE (13:30)
[2020-03-10 16:22] VITALS: BP 126/85
[2020-03-10 20:00] VITALS: BP 135/93
[2020-03-10 22:00] VITALS: BP 135/93
[2020-03-11 05:22] VITALS: BP 140/85
[2020-03-11] MEDS: METOCLOPRAMIDE HCL 5MG/ml INJ 2ml VIAL IV SCH ×3 (05:46→22:17)
[2020-03-11 09:00] VITALS: BP 140/82
[2020-03-11] MEDS: PANTOPRAZOLE 40 MG/10 ML VIAL INJ IV SCH (10:37)
[2020-03-11] MEDS: SODIUM CHLOR 0.9% PF (SALINE LOCK) 10ML VIAL/SYR IV SCH ×2 (10:37→22:17)
[2020-03-11] MEDS ORDERED: TPN PER PHARMACY 0 ML IV SCH (11:30)
[2020-03-11] MEDS: SODIUM CHLORIDE 0.9% 1,000 ML IV SCH (12:12)
[2020-03-11 13:00] VITALS: BP 117/80
[2020-03-11 15:19] LABS: Basophils # (auto) 0.1 10 ^3/uL (0-0.2); Basophils % (auto) 0.7 % (0.0-2.0); Eosinophils # (auto) 0.1 10 ^3/uL (0-0.8); Eosinophils % (auto) 1.2 % (0.0-7.0); Hematocrit 42.1 % (41.0-53.0); Lymphocytes # (auto) 1.1 10 ^3/uL (0.4-5.4); Lymphocytes % (auto) 11.8 % (10.0-50.0); Mean Corpuscular Hemoglobin 29.1 pg (28.0-32.0); Mean Corpuscular Hgb Conc. 33.2 g/dL (32.0-36.0); Mean Corpuscular Volume 87.7 fL (80.0-100.0); Monocytes # (auto) 0.9 10 ^3/uL (0-1.3); Monocytes % (auto) 9.7 % (0.0-12.0); Neutrophils # (auto) 7.3 10 ^3/uL (1.6-8.6); Neutrophils % (auto) 76.6 % (37.0-80.0); Platelet Count (auto) 246 10^3/uL (140-450); Red Cell Distribution Width 14.2 % (11.8-14.3); White Blood Cell 9.6 10^3/uL (4.4-10.8)
[2020-03-11 15:45] LABS: Albumin 2.5 g/dL (3.4-5.0); BUN/Creatinine Ratio 25.9; Calcium 8.2 mg/dL (8.5-10.1); Magnesium 1.6 mg/dL (1.6-2.6); Potassium 3.2 mmol/L (3.5-5.1)
[2020-03-11 16:03] LABS: Bilirubin, Total 0.5 mg/dL (0.2-1.0); Phosphorus 1.8 mg/dL (2.5-4.90); Total Protein 5.6 g/dL (6.4-8.2)
[2020-03-11 16:41] LABS: Pre Albumin 19.6 mg/dL (20.0-40.0)
[2020-03-11 16:51] VITALS: BP 128/84
[2020-03-11] MEDS ORDERED: POTASSIUM PHOSPHATE 44 MEQ in D5W 5% 250 ML IV ONE (17:30)
[2020-03-11 18:28] LABS: Basophils # (auto) 0.1 10 ^3/uL (0-0.2); Basophils % (auto) 0.9 % (0.0-2.0); Eosinophils # (auto) 0.2 10 ^3/uL (0-0.8); Eosinophils % (auto) 1.1 % (0.0-7.0); Hematocrit 47.2 % (41.0-53.0); Hemoglobin 15.6 g/dL (13.5-17.5); Lymphocytes # (auto) 2.2 10 ^3/uL (0.4-5.4); Lymphocytes % (auto) 14.2 % (10.0-50.0); Mean Corpuscular Hemoglobin 29.1 pg (28.0-32.0); Mean Corpuscular Volume 88.3 fL (80.0-100.0); Monocytes # (auto) 1.2 10 ^3/uL (0-1.3); Monocytes % (auto) 7.9 % (0.0-12.0); Neutrophils # (auto) 11.9 10 ^3/uL (1.6-8.6); Neutrophils % (auto) 75.9 % (37.0-80.0); Nucleated Red Blood Cells % 0.3 %; Platelet Count (auto) 296 10^3/uL (140-450); Red Blood Cells 5.34 10^6/uL (4.5-5.90); Red Cell Distribution Width 14.4 % (11.8-14.3); White Blood Cell 15.7 10^3/uL (4.4-10.8)
[2020-03-11] MEDS: D5W/SOD CHL 0.45% 1,000 ML IV SCH (18:38)
[2020-03-11 18:39] LABS: INR 1.06 (0.9-1.15)
[2020-03-11] MEDS: MAGNESIUM SULFATE 1GM/100ML 100 ML IV SCH ×2 (18:43→20:54)
[2020-03-11 18:54] LABS: Calcium 9.1 mg/dL (8.5-10.1); Potassium 3.9 mmol/L (3.5-5.1)
[2020-03-11 18:58] LABS: BUN/Creatinine Ratio 25.5; Bilirubin, Total 0.6 mg/dL (0.2-1.0); Total Protein 6.8 g/dL (6.4-8.2)
[2020-03-11 20:00] VITALS: BP 142/79
[2020-03-11] MEDS ORDERED: CLINIMIX PER PHARMACY IV NR (20:00)
[2020-03-11] MEDS: POTASSIUM CHL 20MEQ/100ML 100 ML IV SCH ×2 (20:00→22:17)
[2020-03-11 22:00] VITALS: BP 142/79
[2020-03-12] MEDS ORDERED: DEXTROSE (50%) 50ML SYRG IV SCH
[2020-03-12] MEDS: ACCU-CHEK COMFORT CURVE STRIP VI SCH ×5 (00:11→20:00)
[2020-03-12] MEDS ORDERED: POTASSIUM CHL 20MEQ/100ML 0 ML IV ONE (01:57)
[2020-03-12 05:00] VITALS: BP 148/84
[2020-03-12] MEDS: METOCLOPRAMIDE HCL 5MG/ml INJ 2ml VIAL IV SCH ×3 (05:59→21:37)
[2020-03-12] MEDS: InsuLIN REG 1unit/0.01ml Soln (100units/ml) SC SCH ×4 (06:00→17:21)
[2020-03-12] MEDS ORDERED: GLYCOPYRROLATE 0.2 MG/ML 1ML VIAL IV ONE (08:00)
[2020-03-12] MEDS ORDERED: NEOSTIGMINE 1 MG/ML INJ (10mg/10ML VIAL) IV ONE (08:00)
[2020-03-12] MEDS ORDERED: BUPIVACAINE 0.25% INJ 50ML VIAL ONE (08:09)
[2020-03-12] MEDS ORDERED: LIDOCAINE W/ EPINEPHRINE 1% 20ML VIAL ONE (08:09)
[2020-03-12] MEDS ORDERED: metroNIDAZOLE 500MG/100ML 100 ML IV ONE (08:33)
[2020-03-12] MEDS ORDERED: ceFAZolin 1GM/50ML 100 ML IV ONE (08:33)
[2020-03-12] MEDS ORDERED: SUCCINYLCHOLINE CHLORIDE 20 MG/ML 10ML VIAL IV ONE (08:38)
[2020-03-12] MEDS ORDERED: ROCURONIUM 10MG/ML 10ML VIAL IV ONE (08:40)
[2020-03-12] MEDS ORDERED: fentaNYL CITRATE 100 MCG/2 ML VL ONE (08:40)
[2020-03-12] MEDS ORDERED: PROPOFOL 10 MG/ML 20 ML IV ONE (08:45)
[2020-03-12] MEDS: D5W/SOD CHL 0.45% 1,000 ML IV SCH ×2 (09:11→20:40)
[2020-03-12] MEDS: SODIUM CHLOR 0.9% PF (SALINE LOCK) 10ML VIAL/SYR IV SCH ×2 (09:12→22:00)
[2020-03-12] MEDS ORDERED: MORPHINE SULF INJ 2 MG/ML SYRINGE 1ML IV PRN (10:15)
[2020-03-12] MEDS ORDERED: HYDROmorphone HCL 2 MG/ML VL ONE (10:15)
[2020-03-12] MEDS ORDERED: hydrALAZINE HCL 20 MG/ML VL IV PRN (10:15)
[2020-03-12] MEDS ORDERED: ONDANSETRON HCL 4 MG/2 ML VIAL IV PRN (10:15)
[2020-03-12] MEDS ORDERED: ePHEDrine SULFATE 50 MG/ML AMP IV PRN (10:15)
[2020-03-12] MEDS: HYDROmorphone HCL 2 MG/ML VL IV PRN ×3 (10:20→20:00)
[2020-03-12] MEDS: PANTOPRAZOLE 40 MG/10 ML VIAL INJ IV SCH (12:05)
[2020-03-12 12:43] LABS: Calcium 8.3 mg/dL (8.5-10.1); Magnesium 2.1 mg/dL (1.6-2.6); Potassium 3.4 mmol/L (3.5-5.1)
[2020-03-12 12:45] LABS: BUN/Creatinine Ratio 25.8; Phosphorus 1.7 mg/dL (2.5-4.90)
[2020-03-12] MEDS ORDERED: POTASSIUM PHOSPHATE 33 MEQ in D5W 5% 250 ML IV ONE (14:00)
[2020-03-12 17:00] VITALS: BP 142/91
[2020-03-12 20:00] VITALS: BP 142/79
[2020-03-12] MEDS ORDERED: TPN PER PHARMACY IV NR ×11 (20:00)
[2020-03-12 22:00] VITALS: BP 138/87
[2020-03-13 05:00] VITALS: BP 144/91
[2020-03-13] MEDS: ACCU-CHEK COMFORT CURVE STRIP VI SCH ×3 (06:00→17:09)
[2020-03-13] MEDS: InsuLIN REG 1unit/0.01ml Soln (100units/ml) SC SCH ×4 (06:00→17:10)
[2020-03-13] MEDS: METOCLOPRAMIDE HCL 5MG/ml INJ 2ml VIAL IV SCH ×3 (06:44→22:34)
[2020-03-13 06:45] LABS: Potassium 3.8 mmol/L (3.5-5.1)
[2020-03-13 06:56] LABS: Albumin 2.5 g/dL (3.4-5.0); BUN/Creatinine Ratio 16.4; Bilirubin, Total 0.6 mg/dL (0.2-1.0); Calcium 8.6 mg/dL (8.5-10.1); Magnesium 2.2 mg/dL (1.6-2.6); Phosphorus 2.1 mg/dL (2.5-4.90); Total Protein 5.6 g/dL (6.4-8.2)
[2020-03-13 09:00] VITALS: BP 150/80
[2020-03-13] MEDS: PANTOPRAZOLE 40 MG/10 ML VIAL INJ IV SCH (09:53)
[2020-03-13] MEDS: D5W/SOD CHL 0.45% 1,000 ML IV SCH ×2 (09:54→23:20)
[2020-03-13] MEDS: LIDOCAINE 5% TOPICAL PATCH TOP SCH (09:54)
[2020-03-13] MEDS: SODIUM CHLOR 0.9% PF (SALINE LOCK) 10ML VIAL/SYR IV SCH ×2 (09:54→22:35)
[2020-03-13] MEDS ORDERED: POTASSIUM PHOSPHATE 22 MEQ in SODIUM CHL 0.9% 100 ML IV ONE (10:00)
[2020-03-13 10:46] LABS: Basophils # (auto) 0 10 ^3/uL (0-0.2); Basophils % (auto) 0.3 % (0.0-2.0); Eosinophils # (auto) 0.2 10 ^3/uL (0-0.8); Eosinophils % (auto) 2.2 % (0.0-7.0); Hematocrit 44.6 % (41.0-53.0); Hemoglobin 14.8 g/dL (13.5-17.5); Lymphocytes % (auto) 8.6 % (10.0-50.0); Mean Corpuscular Hemoglobin 29.2 pg (28.0-32.0); Mean Corpuscular Hgb Conc. 33.2 g/dL (32.0-36.0); Mean Corpuscular Volume 88.2 fL (80.0-100.0); Monocytes # (auto) 0.8 10 ^3/uL (0-1.3); Monocytes % (auto) 7.4 % (0.0-12.0); Neutrophils # (auto) 9.2 10 ^3/uL (1.6-8.6); Neutrophils % (auto) 81.5 % (37.0-80.0); Platelet Count (auto) 275 10^3/uL (140-450); Red Blood Cells 5.05 10^6/uL (4.5-5.90); Red Cell Distribution Width 14.3 % (11.8-14.3); White Blood Cell 11.2 10^3/uL (4.4-10.8)
[2020-03-13 12:53] VITALS: BP 138/80
[2020-03-13 16:57] VITALS: BP 154/86
[2020-03-13] MEDS ORDERED: TPN PER PHARMACY IV NR ×10 (20:00)
[2020-03-13 22:00] VITALS: BP 143/95
[2020-03-14 05:00] VITALS: BP 163/85
[2020-03-14] MEDS: ACCU-CHEK COMFORT CURVE STRIP VI SCH ×4 (06:00→18:45)
[2020-03-14] MEDS: InsuLIN REG 1unit/0.01ml Soln (100units/ml) SC SCH ×4 (06:00→19:03)
[2020-03-14 06:27] LABS: Potassium 3.4 mmol/L (3.5-5.1)
[2020-03-14] MEDS: METOCLOPRAMIDE HCL 5MG/ml INJ 2ml VIAL IV SCH ×3 (06:34→22:59)
[2020-03-14 06:35] LABS: Albumin 2.6 g/dL (3.4-5.0); BUN/Creatinine Ratio 17.6; Bilirubin, Total 0.5 mg/dL (0.2-1.0); Calcium 8.6 mg/dL (8.5-10.1); Magnesium 2.1 mg/dL (1.6-2.6); Total Protein 6.1 g/dL (6.4-8.2)
[2020-03-14 08:00] VITALS: BP 150/86
[2020-03-14] MEDS ORDERED: POTASSIUM PHOSPHATE 44 MEQ in D5W 5% 250 ML IV ONE (10:45)
[2020-03-14] MEDS: SODIUM CHLOR 0.9% PF (SALINE LOCK) 10ML VIAL/SYR IV SCH ×2 (10:58→23:00)
[2020-03-14] MEDS: PANTOPRAZOLE 40 MG/10 ML VIAL INJ IV SCH (10:58)
[2020-03-14] MEDS: LIDOCAINE 5% TOPICAL PATCH TOP SCH (10:58)
[2020-03-14 12:00] VITALS: BP 145/89
[2020-03-14] MEDS: D5W/SOD CHL 0.45% 1,000 ML IV SCH ×2 (12:03→15:23)
[2020-03-14 16:47] VITALS: BP 154/99
[2020-03-14] MEDS ORDERED: TPN PER PHARMACY IV NR ×11 (20:00)
[2020-03-14 22:00] VITALS: BP 153/78
[2020-03-15] MEDS: D5W/SOD CHL 0.45% 1,000 ML IV SCH ×2 (02:00→13:38)
[2020-03-15 05:00] VITALS: BP 157/84
[2020-03-15] MEDS: InsuLIN REG 1unit/0.01ml Soln (100units/ml) SC SCH ×4 (06:00→17:33)
[2020-03-15] MEDS: ACCU-CHEK COMFORT CURVE STRIP VI SCH ×4 (06:00→17:33)
[2020-03-15] MEDS: METOCLOPRAMIDE HCL 5MG/ml INJ 2ml VIAL IV SCH ×3 (06:04→22:29)
[2020-03-15 06:30] LABS: Albumin 2.4 g/dL (3.4-5.0); BUN/Creatinine Ratio 18.2; Calcium 8.4 mg/dL (8.5-10.1); Potassium 3.8 mmol/L (3.5-5.1)
[2020-03-15 06:33] LABS: Bilirubin, Total 0.5 mg/dL (0.2-1.0); Phosphorus 2.4 mg/dL (2.5-4.90); Total Protein 5.6 g/dL (6.4-8.2)
[2020-03-15 08:20] VITALS: BP 160/93
[2020-03-15 09:00] VITALS: BP 160/93
[2020-03-15] MEDS: SODIUM CHLOR 0.9% PF (SALINE LOCK) 10ML VIAL/SYR IV SCH ×2 (09:48→22:23)
[2020-03-15] MEDS: PANTOPRAZOLE 40 MG/10 ML VIAL INJ IV SCH (09:48)
[2020-03-15] MEDS: LIDOCAINE 5% TOPICAL PATCH TOP SCH (09:50)
[2020-03-15] MEDS ORDERED: SODIUM PHOSPHATES 20 MEQ in SODIUM CHL 0.9% 100 ML IV ONE (11:00)
[2020-03-15 13:00] VITALS: BP 125/72
[2020-03-15 17:00] VITALS: BP 155/86
[2020-03-15 18:28] LABS: Basophils # (auto) 0.1 10 ^3/uL (0-0.2); Basophils % (auto) 0.9 % (0.0-2.0); Eosinophils # (auto) 0.4 10 ^3/uL (0-0.8); Eosinophils % (auto) 4.5 % (0.0-7.0); Hematocrit 42.4 % (41.0-53.0); Hemoglobin 14.4 g/dL (13.5-17.5); Lymphocytes # (auto) 0.9 10 ^3/uL (0.4-5.4); Lymphocytes % (auto) 11.4 % (10.0-50.0); Mean Corpuscular Hemoglobin 29.5 pg (28.0-32.0); Mean Corpuscular Hgb Conc. 33.9 g/dL (32.0-36.0); Monocytes # (auto) 0.7 10 ^3/uL (0-1.3); Monocytes % (auto) 8.6 % (0.0-12.0); Neutrophils # (auto) 5.9 10 ^3/uL (1.6-8.6); Neutrophils % (auto) 74.6 % (37.0-80.0); Platelet Count (auto) 290 10^3/uL (140-450); Red Blood Cells 4.87 10^6/uL (4.5-5.90); Red Cell Distribution Width 14.2 % (11.8-14.3); White Blood Cell 7.9 10^3/uL (4.4-10.8)
[2020-03-15] MEDS ORDERED: FAT EMULSION IV NR ×11 (20:00)
[2020-03-15] MEDS ORDERED: POTASSIUM ACETATE IV NR ×11 (20:00)
[2020-03-15] MEDS ORDERED: SODIUM ACETATE IV NR ×11 (20:00)
[2020-03-15] MEDS ORDERED: [UNRECOGNIZED DRUG - OTHER] IV NR ×11 (20:00)
[2020-03-15 22:00] VITALS: BP 157/93
[2020-03-16] MEDS: D5W/SOD CHL 0.45% 1,000 ML IV SCH (03:14)
[2020-03-16 05:00] VITALS: BP 131/81
[2020-03-16] MEDS: ACCU-CHEK COMFORT CURVE STRIP VI SCH ×3 (06:00→12:09)
[2020-03-16] MEDS: METOCLOPRAMIDE HCL 5MG/ml INJ 2ml VIAL IV SCH (06:00)
[2020-03-16] MEDS: InsuLIN REG 1unit/0.01ml Soln (100units/ml) SC SCH ×3 (06:00→12:43)
[2020-03-16 07:31] LABS: Albumin 2.6 g/dL (3.4-5.0); BUN/Creatinine Ratio 18.6; Bilirubin, Total 0.5 mg/dL (0.2-1.0); Calcium 8.7 mg/dL (8.5-10.1); Magnesium 2.2 mg/dL (1.6-2.6)
[2020-03-16 08:00] VITALS: BP 136/83
[2020-03-16 08:15] VITALS: BP 136/83
[2020-03-16] MEDS: LIDOCAINE 5% TOPICAL PATCH TOP SCH (09:55)
[2020-03-16] MEDS: SODIUM CHLOR 0.9% PF (SALINE LOCK) 10ML VIAL/SYR IV SCH (09:55)
[2020-03-16] MEDS: PANTOPRAZOLE 40 MG/10 ML VIAL INJ IV SCH (09:55)
[2020-03-16 12:00] VITALS: BP 143/85
[2020-03-16 16:00] VITALS: BP 137/81
[2020-03-16 16:40] VITALS: BP 137/81
== END 2020-03-16 19:00 | disposition home or self-care (01) | DRG 335 ==
LOC: TELE-WESTW 16:17
PROVIDERS: ADMIT Internal Medicine Cardiovascular Disease; ATTEND Internal Medicine Cardiovascular Disease
PROC: 0D9670Z Drainage of Stomach with Drainage Device, Via Natural or Artificial Opening (ICD-10-PCS; 2020-03-03)
PROC: 02HV33Z Insertion of Infusion Device into Superior Vena Cava, Percutaneous Approach (ICD-10-PCS; 2020-03-04)
PROC: 0WQF0ZZ Repair Abdominal Wall, Open Approach (ICD-10-PCS; 2020-03-12)
PROC: 0DN80ZZ Release Small Intestine, Open Approach (ICD-10-PCS; principal; 2020-03-12 08:36)
DX: K56.51 Intestinal adhesions [bands], with partial obstruction (principal); N17.0 Acute kidney failure with tubular necrosis; K42.0 Umbilical hernia with obstruction, without gangrene; I10 Essential (primary) hypertension; E87.6 Hypokalemia; K52.9 Noninfective gastroenteritis and colitis, unspecified; K57.50 Diverticulosis of both small and large intestine without perforation or abscess without bleeding; Z90.49 Acquired absence of other specified parts of digestive tract; Z20.828 Contact with and (suspected) exposure to other viral communicable diseases
CPT/HCPCS: 36415; 36569; 71045; 74018; 74177; 74250; 80048; 80053; 80076; 82040; 82962; 83735; 84100; 84478; 85025; 85610; 86850; 86900; 86901; 93005; 94760; 94762; 97110; 97116; 97530; C9113; G0378; J0330; J0690; J1815; J2405; J2543; J2704; J3480; J3490; J7060

== ENCOUNTER → 2020-04-22 | Outpatient (CLI) | payer MEDICARE, OTHER ==
[~2020-04-22] MED LIST changes: -GLUC750T29 PO; -HYDR25TA4 PO; +READI-CAT 2 (BARIUM SULF)(VANILLA SMOOTHIE) 450ML ONE
== END | disposition home or self-care (01) ==
LOC: Rad HDHVI 09:47
PROVIDERS: ATTEND Internal Medicine Cardiovascular Disease
DX: K57.30 Diverticulosis of large intestine without perforation or abscess without bleeding (principal); N32.3 Diverticulum of bladder; I70.0 Atherosclerosis of aorta; I25.10 Atherosclerotic heart disease of native coronary artery without angina pectoris; Z90.49 Acquired absence of other specified parts of digestive tract; N32.89 Other specified disorders of bladder; M47.819 Spondylosis without myelopathy or radiculopathy, site unspecified; M43.16 Spondylolisthesis, lumbar region; R10.9 Unspecified abdominal pain; Z88.1 Allergy status to other antibiotic agents; Z88.8 Allergy status to other drugs, medicaments and biological substances
CPT/HCPCS: 74176

== ENCOUNTER → 2020-05-03 | Outpatient (CLI) | payer MEDICARE, OTHER ==
[~2020-05-03] MED LIST changes: -READI-CAT 2 (BARIUM SULF)(VANILLA SMOOTHIE) 450ML ONE
== END | disposition home or self-care (01) ==
LOC: Rad HDHVI 14:40
PROVIDERS: ATTEND Internal Medicine Cardiovascular Disease
DX: I50.33 Acute on chronic diastolic (congestive) heart failure (principal); R06.02 Shortness of breath
CPT/HCPCS: 93306

== ENCOUNTER → 2020-05-04 | Outpatient (CLI) | payer MEDICARE, OTHER ==
[~2020-05-04] VITALS: Ht 177.8 cm; Wt 83.9 kg
[~2020-05-04] MED LIST changes: +ADENOSINE 70 MG in GIVE UN-DILUTED 0 ML IV ONE; +ADENOSINE 90 MG/30 ML INJ IV ONE
== END | disposition home or self-care (01) ==
LOC: Rad HDHVI 08:43
PROVIDERS: ATTEND Internal Medicine Cardiovascular Disease
DX: E78.00 Pure hypercholesterolemia, unspecified (principal); I10 Essential (primary) hypertension; Z95.2 Presence of prosthetic heart valve
CPT/HCPCS: 78452; 93005; 96374; 96375; A9500; J0153

== ENCOUNTER → 2020-12-28 | Outpatient (CLI) | payer MEDICARE, OTHER ==
[~2020-12-28] MED LIST changes: -ADENOSINE 70 MG in GIVE UN-DILUTED 0 ML IV ONE; -ADENOSINE 90 MG/30 ML INJ IV ONE; +IOHEXOL 350 MG/ML 100ML IJ ONE
[2020-12-28 08:10] VITALS: BP 127/74
[2020-12-28 08:58] LABS: Basophils # (auto) 0.1 10 ^3/uL (0-0.2); Basophils % (auto) 2.2 % (0.0-2.0); Eosinophils # (auto) 0.2 10 ^3/uL (0-0.8); Eosinophils % (auto) 4.3 % (0.0-7.0); Hematocrit 43.6 % (41.0-53.0); Hemoglobin 14.5 g/dL (13.5-17.5); Lymphocytes # (auto) 1.8 10 ^3/uL (0.4-5.4); Lymphocytes % (auto) 34.2 % (10.0-50.0); Mean Corpuscular Hemoglobin 28.5 pg (28.0-32.0); Mean Corpuscular Hgb Conc. 33.2 g/dL (32.0-36.0); Mean Corpuscular Volume 85.8 fL (80.0-100.0); Monocytes # (auto) 0.5 10 ^3/uL (0-1.3); Monocytes % (auto) 10.1 % (0.0-12.0); Neutrophils # (auto) 2.6 10 ^3/uL (1.6-8.6); Neutrophils % (auto) 49.2 % (37.0-80.0); Nucleated Red Blood Cells % 0.1 %; Red Blood Cells 5.08 10^6/uL (4.5-5.90); Red Cell Distribution Width 15.1 % (11.8-14.3); White Blood Cell 5.2 10^3/uL (4.4-10.8)
[2020-12-28 09:06] LABS: INR 1.07 (0.9-1.15); Partial Thromboplastin Time 32.9 sec (23.0-31.2)
[2020-12-28 09:17] LABS: Albumin 4.1 g/dL (3.4-5.0); Potassium 3.8 mmol/L (3.5-5.1)
[2020-12-28 09:20] LABS: BUN/Creatinine Ratio 26.4; Bilirubin, Total 0.5 mg/dL (0.2-1.0); Total Protein 7.4 g/dL (6.4-8.2)
[2020-12-28 09:50] VITALS: BP 159/81
== END | disposition home or self-care (01) ==
LOC: Rad HDHVI 08:09
PROVIDERS: ATTEND Internal Medicine Cardiovascular Disease
DX: Z01.812 Encounter for preprocedural laboratory examination (principal); K42.9 Umbilical hernia without obstruction or gangrene; K57.30 Diverticulosis of large intestine without perforation or abscess without bleeding; N32.3 Diverticulum of bladder; N32.0 Bladder-neck obstruction; I70.0 Atherosclerosis of aorta; I51.7 Cardiomegaly; R10.9 Unspecified abdominal pain; N32.89 Other specified disorders of bladder; K44.9 Diaphragmatic hernia without obstruction or gangrene; M47.819 Spondylosis without myelopathy or radiculopathy, site unspecified
CPT/HCPCS: 36415; 74177; 80053; 85025; 85610; 85730; G0463; Q9967

== ENCOUNTER → 2021-11-20 | Outpatient (CLI) | payer MEDICARE, OTHER ==
[~2021-11-20] MED LIST changes: -ASPI-231 PO; +ASPI1TAB20 PO; -IOHEXOL 350 MG/ML 100ML IJ ONE
== END | disposition home or self-care (01) ==
LOC: Rad HDHVI 12:34
PROVIDERS: ATTEND Internal Medicine Cardiovascular Disease
DX: I08.3 Combined rheumatic disorders of mitral, aortic and tricuspid valves (principal); I27.20 Pulmonary hypertension, unspecified; I11.0 Hypertensive heart disease with heart failure; I50.33 Acute on chronic diastolic (congestive) heart failure
CPT/HCPCS: 93306; 93880

== ENCOUNTER → 2021-11-27 | Outpatient (CLI) | payer MEDICARE, OTHER ==
[~2021-11-27] VITALS: Ht 172.7 cm; Wt 86.6 kg
[~2021-11-27] MED LIST changes: +ADENOSINE 73 MG in GIVE UN-DILUTED 0 ML IV ONE; +ADENOSINE 90 MG/30 ML INJ IV ONE
== END | disposition home or self-care (01) ==
LOC: Rad HDHVI 12:34
PROVIDERS: ATTEND Internal Medicine Cardiovascular Disease
DX: I25.10 Atherosclerotic heart disease of native coronary artery without angina pectoris (principal); R06.02 Shortness of breath; I10 Essential (primary) hypertension; E78.5 Hyperlipidemia, unspecified
CPT/HCPCS: 78452; 93005; 96374; 96375; A9500; J0153

== ENCOUNTER → 2022-07-25 | Outpatient (CLI) | payer MEDICARE, OTHER ==
[~2022-07-25] MED LIST changes: -ADENOSINE 73 MG in GIVE UN-DILUTED 0 ML IV ONE; -ADENOSINE 90 MG/30 ML INJ IV ONE
[2022-07-25 10:25] LABS: Urine Blood Negative /uL (Negative); Urine Specific Gravity 1.019 (1.001-1.035)
[2022-07-25 10:33] LABS: Albumin 4.2 g/dL (3.4-5.0); Calcium 9.8 mg/dL (8.5-10.1)
[2022-07-25 10:37] LABS: BUN/Creatinine Ratio 25.5; Bilirubin, Total 0.6 mg/dL (0.2-1.0); Total Protein 7.1 g/dL (6.4-8.2)
[2022-07-25 10:38] LABS: Basophils # (auto) 0.1 10 ^3/uL (0-0.2); Eosinophils # (auto) 0.3 10 ^3/uL (0-0.8); Eosinophils % (auto) 4.1 % (0.0-7.0); Hematocrit 44.8 % (41.0-53.0); Hemoglobin 15.1 g/dL (13.5-17.5); Lymphocytes # (auto) 1.9 10 ^3/uL (0.4-5.4); Lymphocytes % (auto) 31.9 % (10.0-50.0); Mean Corpuscular Hemoglobin 29.4 pg (28.0-32.0); Mean Corpuscular Hgb Conc. 33.7 g/dL (32.0-36.0); Mean Corpuscular Volume 87.4 fL (80.0-100.0); Monocytes # (auto) 0.6 10 ^3/uL (0-1.3); Monocytes % (auto) 10.2 % (0.0-12.0); Neutrophils # (auto) 3.2 10 ^3/uL (1.6-8.6); Neutrophils % (auto) 52.8 % (37.0-80.0); Nucleated Red Blood Cells % 0.1 %; Red Blood Cells 5.13 10^6/uL (4.5-5.90); Red Cell Distribution Width 14.4 % (11.8-14.3); White Blood Cell 6.1 10^3/uL (4.4-10.8)
[2022-07-25 10:48] LABS: Free T4 (Free Thyroxine) 1.35 ng/dL (0.89-1.76); Prostate Specific Antigen 0.26 ng/mL (0.0-4.0)
== END | disposition home or self-care (01) ==
LOC: LAB 08:40
PROVIDERS: ATTEND Internal Medicine Cardiovascular Disease
DX: I10 Essential (primary) hypertension (principal); E55.9 Vitamin D deficiency, unspecified; N39.0 Urinary tract infection, site not specified; D53.1 Other megaloblastic anemias, not elsewhere classified; E11.9 Type 2 diabetes mellitus without complications; R00.2 Palpitations; R53.1 Weakness; R30.0 Dysuria; C61 Malignant neoplasm of prostate
CPT/HCPCS: 36415; 80053; 80061; 81003; 82306; 82607; 83036; 84153; 84403; 84439; 84443; 85025; 87086

== ENCOUNTER 2022-09-21 10:41 | Emergency (ER) | payer MEDICARE, OTHER ==
[~2022-09-21] VITALS: Ht 175.3 cm; Wt 87.0 kg
[2022-09-21 11:27] LABS: Basophils # (auto) 0.1 10 ^3/uL (0-0.2); Basophils % (auto) 0.9 % (0.0-2.0); Eosinophils # (auto) 0.1 10 ^3/uL (0-0.8); Hematocrit 47.4 % (41.0-53.0); Hemoglobin 15.9 g/dL (13.5-17.5); Lymphocytes # (auto) 1.2 10 ^3/uL (0.4-5.4); Lymphocytes % (auto) 14.1 % (10.0-50.0); Mean Corpuscular Hemoglobin 29.2 pg (28.0-32.0); Mean Corpuscular Hgb Conc. 33.5 g/dL (32.0-36.0); Mean Corpuscular Volume 87.1 fL (80.0-100.0); Monocytes # (auto) 0.8 10 ^3/uL (0-1.3); Neutrophils # (auto) 6.1 10 ^3/uL (1.6-8.6); Nucleated Red Blood Cells % 0.3 %; Red Blood Cells 5.44 10^6/uL (4.5-5.90); Red Cell Distribution Width 14.4 % (11.8-14.3); White Blood Cell 8.2 10^3/uL (4.4-10.8)
[2022-09-21 11:40] LABS: Albumin 3.5 g/dL (3.4-5.0); Calcium 10.2 mg/dL (8.5-10.1); Potassium 3.4 mmol/L (3.5-5.1)
[2022-09-21 11:44] LABS: BUN/Creatinine Ratio 17.4 (10.0-20.0); Total Protein 7.4 g/dL (6.4-8.2)
[2022-09-21] MEDS ORDERED: HYDROcodone-ACET 10/325MG TAB PO ONE (11:45)
[2022-09-21] MEDS ORDERED: IOHEXOL 350 MG/ML 100ML IJ ONE (11:57)
[2022-09-21 12:22] LABS: INR 1.05 (0.9-1.15); Partial Thromboplastin Time 36.2 sec (24.6-33.4)
[2022-09-21] MEDS ORDERED: ACETAMINOPHEN 500 MG TAB PO ONE (15:45)
[2022-09-21] MEDS ORDERED: CYCL-837 PO (15:54)
[2022-09-21] MEDS ORDERED: IBUP600T28 PO (15:54)
[2022-09-21 16:30] VITALS: BP 110/78
== END 2022-09-21 16:42 | disposition home or self-care (01) ==
LOC: ER 10:41
DX: M54.2 Cervicalgia (principal); M54.6 Pain in thoracic spine; M79.18 Myalgia, other site; I10 Essential (primary) hypertension; E78.5 Hyperlipidemia, unspecified; R06.02 Shortness of breath; Z88.1 Allergy status to other antibiotic agents; Z79.01 Long term (current) use of anticoagulants
CPT/HCPCS: 36415; 71260; 72125; 74177; 80053; 83880; 84484; 85025; 85379; 85610; 85652; 85730; 93005; 99285; Q9967

== ENCOUNTER → 2022-11-13 | Outpatient (CLI) | payer MEDICARE, OTHER ==
[~2022-11-13] MED LIST changes: +BENA-36 PO; -BENA20TA14 PO; +CYCL-837 PO; +FENO160T PO; -FENO160T8 PO; +IBUP1TAB5 PO
== END | disposition home or self-care (01) ==
LOC: Rad HDHVI 14:59
PROVIDERS: ATTEND Internal Medicine Cardiovascular Disease
DX: I63.9 Cerebral infarction, unspecified (principal)
CPT/HCPCS: 70450

== ENCOUNTER → 2023-01-18 | Outpatient (CLI) | payer MEDICARE, OTHER | END | disposition home or self-care (01) | LOC: Rad HDHVI 13:48 | PROVIDERS: ATTEND Internal Medicine Cardiovascular Disease | DX: I08.1 Rheumatic disorders of both mitral and tricuspid valves (principal); I11.9 Hypertensive heart disease without heart failure; R00.2 Palpitations | CPT/HCPCS: 93306 ==

== ENCOUNTER → 2023-12-25 | Outpatient (CLI) | payer MEDICARE, OTHER | END | disposition home or self-care (01) | LOC: Rad HDHVI 09:33 | PROVIDERS: ATTEND Internal Medicine Cardiovascular Disease | DX: I08.8 Other rheumatic multiple valve diseases (principal) | CPT/HCPCS: 93306 ==

== ENCOUNTER → 2023-12-27 | Outpatient (CLI) | payer MEDICARE, OTHER ==
[~2023-12-27] VITALS: Ht 172.7 cm; Wt 83.9 kg
[~2023-12-27] MED LIST changes: +ADENOSINE 70 MG in GIVE UN-DILUTED 0 ML IV ONE; +ADENOSINE 90 MG/30 ML INJ IV ONE
== END | disposition home or self-care (01) ==
LOC: Rad HDHVI 09:16
PROVIDERS: ATTEND Internal Medicine Cardiovascular Disease
DX: I11.0 Hypertensive heart disease with heart failure (principal); I50.43 Acute on chronic combined systolic (congestive) and diastolic (congestive) heart failure; I48.0 Paroxysmal atrial fibrillation; I25.10 Atherosclerotic heart disease of native coronary artery without angina pectoris; E78.00 Pure hypercholesterolemia, unspecified
CPT/HCPCS: 78452; 93005; 96374; 96375; A9500; J0153

== ENCOUNTER → 2024-07-20 | Outpatient (CLI) | payer MEDICARE, OTHER ==
[~2024-07-20] MED LIST changes: -ADENOSINE 70 MG in GIVE UN-DILUTED 0 ML IV ONE; -ADENOSINE 90 MG/30 ML INJ IV ONE; -TAMS0.4C36 PO; +TAMS0.4C39 PO
--- NOTE | 2024-07-20 14:23 | DVH ---
XY CHEST TWO VIEWS ROUTINE CLINICAL HISTORY: SOB COMPARISON: None TECHNIQUE: Frontal and lateral view of the chest was obtained FINDINGS: Lines and Tubes: None Lungs: No focal consolidation. Pleura: No effusion. No pneumothorax. Cardiomediastinal contours: Unremarkable Bones: No acute osseous abnormality. IMPRESSION: No acute cardiopulmonary disease.
== END | disposition home or self-care (01) ==
LOC: Rad HDHVI 12:22
PROVIDERS: ATTEND Internal Medicine Cardiovascular Disease
DX: R06.02 Shortness of breath (principal); Z79.899 Other long term (current) drug therapy
CPT/HCPCS: 71046

== ENCOUNTER → 2025-01-21 | Outpatient (CLI) | payer MEDICARE, OTHER ==
--- NOTE | 2025-01-22 15:13 | DVHSR ---
APPROVED REPORT EXAM: Two-dimensional and M-mode echocardiogram with Doppler and color Doppler. DIMENSIONS LVDd5.2 (3.8-5.7cm)LA (2D)5.4 (1.9-4.0cm)Aortic Root3.7 (2.0-3.7cm) LVDs3.9 (2.5-4.0cm)LA (MM) (1.9-4.0cm)Aortic Cusp Exc2.1 (1.5-2.0cm) EF (%) 48.2 (55-70%)Rt. Atrium4.4 (1.9-4.0cm)Asc. Aorta cm IVSd0.8 (0.7-1.1cm)RV (D)3.7 (1.8-2.4cm) PWd1.3 (0.7-1.1cm) Mitral Valve MitralMitral Stenosis E wave0.70m/sMV Mean GR.mmHg A wavem/sMV Peak GR.86mmHg E/A ratio0.02D MVAcm2 Aortic Valve Aortic ValveAortic Stenosis V1m/Portillo Mean GR.3mmHg V21.13m/[place]illo Peak GR.5mmHg AI P 1/2 Cbdm781.99ms Pulmonic Valve V20.48m/s Tricuspid Valve TR Velocity2.87m/s [id number] LEFT VENTRICLE The Ejection Fraction is 45-50%. ATRIA The left atrium is mildly dilated. The right atrium is mildly dilated. MITRAL VALVE The mitral valve is normal in structure and function. Mitral regurgitation is mild. PULMONIC VALVE The pulmonic valve is not well visualized. TRICUSPID VALVE The tricuspid valve is grossly normal. There is mild to moderate tricuspid regurgitation. AORTIC VALVE The aortic valve opens well. There is trace to mild aortic regurgitation. GREAT VESSELS The aortic root is normal size. PERICARDIAL EFFUSION There is no pericardial effusion. Conclusion EF 45% MILD AV CALCIFICATION MILD AI MILD MR MILD TR LAE CARMITA
== END | disposition home or self-care (01) ==
LOC: Rad HDHVI 13:37
PROVIDERS: ATTEND Internal Medicine Cardiovascular Disease
DX: I08.3 Combined rheumatic disorders of mitral, aortic and tricuspid valves (principal); R00.2 Palpitations
CPT/HCPCS: 93306

== ENCOUNTER 2025-05-03 09:33 | Outpatient (CLI) | payer MEDICARE, OTHER ==
[~2025-05-03] VITALS: Ht 172.7 cm; Wt 79.4 kg
[2025-05-03] MEDS ORDERED: ADENOSINE 90 MG/30 ML INJ IV ONE (10:04)
[2025-05-03] MEDS ORDERED: ADENOSINE 67 MG in GIVE UN-DILUTED 0 ML IV ONE (12:00)
== END 2025-05-03 17:00 | disposition home or self-care (01) ==
LOC: Rad HDHVI 09:33
PROVIDERS: ATTEND Internal Medicine Cardiovascular Disease
DX: Z01.810 Encounter for preprocedural cardiovascular examination (principal); I48.91 Unspecified atrial fibrillation; I45.10 Unspecified right bundle-branch block; R00.2 Palpitations; I11.0 Hypertensive heart disease with heart failure; I25.10 Atherosclerotic heart disease of native coronary artery without angina pectoris; I50.33 Acute on chronic diastolic (congestive) heart failure; I48.0 Paroxysmal atrial fibrillation; E78.00 Pure hypercholesterolemia, unspecified
CPT/HCPCS: 78452; 93017; A9500; J0153